=== PATIENT | female | born 1985 | race Caucasian/White ===

== ENCOUNTER 2016-10-10 03:35 | Emergency (ER) | payer SELFPAY ==
[2016-10-10 04:00] VITALS: BP 142/97
[2016-10-10] MEDS ORDERED: TYLENOL PO ONE (04:50)
[2016-10-10] MEDS ORDERED: TYLENOL ONE (04:51)
--- NOTE | 2016-10-10 05:46 | Emergency Department Report ---
HPI - General Chief Complaint: Dental/Oral Time Seen by Provider: 10/10/16 05:29 - HPI HPI: The patient is [id number] female at 39.3 weeks gestation followed by OPERATIONS PLANNER who presents to ED complaining of 10/10 pain in the right side of her mouth x 7 days . Patient states that the pain started 7 days ago and has increased in severity over the last 2-3 days. Patient states that it radiates towards ear. Patient describes a as a throbbing, pressure-like sensation. Patient states otherwise well and has no other complaints. Patient has had no fevers and no chills. No chest pain, no shortness of breath. No abdominal pain. No shortness of breath or recent trauma to the face. She states she has not been to due to increased quality to . ED Past Medical Hx - Past Medical History Previous Medical History?: No - Surgical History Past Surgical History?: Yes Additional Surgical History: 4 c-sections - Social History Smoking Status: Unknown if ever smoked - Medications Home Medications: Home Medications Medication Instructions Recorded Confirmed Last Taken Type Acetaminophen/Codeine [Tylenol 1 tab PO Q6H PRN #10 tab 10/10/16 Unknown Rx /Codeine # 3 tab] Amoxicillin [Amoxicillin TAB] 875 mg PO BID #20 tablet 10/10/16 Unknown Rx ED Review of Systems ROS: Stated complaint: TOOTHACHE, ABSCESS,RT FACE PAIN Other details as noted in HPI Constitutional: denies: chills, fever Eyes: denies: eye pain, eye discharge, vision change ENT: dental pain. denies: ear pain, throat pain, hearing loss, congestion Respiratory: denies: cough, shortness of breath, wheezing Cardiovascular: denies: chest pain, palpitations Endocrine: no symptoms reported Gastrointestinal: denies: abdominal pain, nausea, diarrhea Genitourinary: denies: urgency, dysuria, discharge Musculoskeletal: denies: back pain, joint swelling, arthralgia Skin: denies: rash, lesions Neurological: denies: headache, weakness, paresthesias Psychiatric: denies: anxiety, depression Hematological/Lymphatic: denies: easy bleeding, easy bruising Physical Exam - Physical Exam Vital Signs: Vital Signs 10/10/16 03:57 Temperature 97.7 F Pulse Rate 94 H Respiratory 20 Rate Blood Pressure 142/97 O2 Sat by Pulse 99 Oximetry Physical Exam: GENERAL: Alert and oriented x3, no apparent distress, Normal Gait, atraumatic. HEAD: Head is normocephalic and a-traumatic. EYES: Extra ocular muscles are intact. Pupils are equal, round, and reactive to light and accommodation. EARS: symetrical, atraumatic, non tender, ear canal clear and moderate cerumen, tympanic membrance non inflamed. gross auditory nml bilaterally. NOSE: Nose symetrical, Nontender,Nares appeared normal. MOUTH:Mouth is well hydrated and without lesions. Tonsils nonerythematous or swollen, Uvula midline, Tongue not elevated. Mucous membranes are moist. Posterior pharynx clear, no exudate or lesions. Patent airways. Tooth #1719 and 19 partially missing, decayed, not to bleeding, no change of the enlargement , dental caries visualize NECK: Supple. Non edematous, No carotid bruits. No lymphadenopathy or thyromegaly. No C-spine tenderness LUNGS: Symetrical with respiration, No wheezing, no rales or crackles, CTAB. HEART: S1, S2 present, regular rate and rhythm without murmur, no rubs, no gallops. Non tender to palpation ABDOMEN: No organomegaly was noted,Positive bowel sounds, soft, and non- distended. . Nontender to palpation on all Quadrants, NO CVA tenderness. SKIN: Warm and dry, No lesions, No ulceration or induration present. ED Course Vital Signs 10/10/16 03:57 Temperature 97.7 F Pulse Rate 94 H Respiratory 20 Rate Blood Pressure 142/97 O2 Sat by Pulse 99 Oximetry ED Medical Decision Making - Medical Decision Making 31-year-old female who presents with left-sided Facial pain secondary to odontogenic caries ED course: Patient received 1000 mg of amoxicillin, 1 tablets of Tylenol No. 3. Odontogenic infection versus ear infection. Based upon history and physical examination, pain is a result of an infection of tooth number 16,17,18 and that the pain Pt feels on the right side of her face and towards the ear is referred pain from this infectious process. Pt has no evidence of acute impending airway compromise. At this point, patient will be discharged home on some antibiotics and pain trial, she will do well with an outpatient course of antibiotics. Follow up with the Dental Clinic as referred. Vital signs are normal patient is in no acute distress. Pt had an effect uneventful ED stay Critical care attestation.: If time is entered above; I have spent that time in minutes in the direct care of this critically ill patient, excluding procedure time. ED Disposition Clinical Impression: Dental caries Disposition: TO HOME OR SELFCARE Is pt being admited?: No Does the pt Need Aspirin: No Condition: Stable Instructions: Toothache (ED), Dental Caries (ED) Prescriptions: Acetaminophen/Codeine [Tylenol /Codeine # 3 tab] 1 tab PO Q6H PRN #10 tab PRN Reason: Pain Amoxicillin [Amoxicillin TAB] 875 mg PO BID #20 tablet Referrals: PRIMARY CARE, [Primary Care Provider] - 3-5 Days [facility] [Outside] - 3-5 Days [facility] [Outside] - 3-5 Days Forms: Accompanied Note, Work/School Release Form(ED) Time of Disposition: 05:54
[2016-10-10] MEDS ORDERED: TYLENOL #3 PO ONE (05:55)
[2016-10-10] MEDS ORDERED: TRIMOX PO ONE (05:55)
== END 2016-10-10 06:04 | disposition home or self-care (01) ==
LOC: ED 03:35
DX: O26.893 Other specified pregnancy related conditions, third trimester (principal); K02.9 Dental caries, unspecified; Z3A.39 39 weeks gestation of pregnancy
CPT/HCPCS: 99282

== ENCOUNTER 2016-10-13 15:35 | Inpatient (IN) | payer OTHER ==
--- NOTE | 2016-10-13 16:48 | History and Physical Report ---
<YULIANA SIMMONS - Last Filed: 10/13/16 17:39> History of Present Illness Date of examination: 10/13/16 (pt presents c/o pain; has just moved to area) Chief complaint: abdominal pain History of present illness: pt is a 5P4 all sections 1st c/s was for arrest of descent Records requested and received from [facility] EDC 10-15-16 Pt denies Drugs, ETOH, Smoking Negative medical hx surgical hx: c/s X 4 Labs from 09-22-16 AB+ Antibody screen negative Rubella IMMUNE HepB negative HIV negative GBS done but not yet resulted Pt aware will have a repeat section and voices desire for permanent sterilization. Past History - Obstetrical History Expected Date of Delivery: 10/15/16 Actual Gestation: 39 Week(s) 5 Day(s) : 5 Para: 4 (all c/s deliveries) Hx # Term Pregnancies: 4 Number of Living Children: 4 Medications and Allergies Allergies Allergy/AdvReac Type Severity Reaction Status Date / Time No Known Allergies Allergy Verified 10/10/16 04:52 - Physical Exam Breasts: Positive: deferred Cardiovascular: Regular rate, Normal S1, Normal S2 Lungs: Positive: Normal air movement Abdomen: Positive: normal appearance, soft, normal bowel sounds. Negative: distention, tenderness Genitourinary (Female): Positive: normal external genitalia Vulva: both: normal Vagina: Positive: normal moisture. Negative: discharge Cervix: Negative: lesion, discharge Uterus: Positive: normal size, normal contour Adnexa: both: normal Anus/Rectum: Positive: normal perianal skin, heme negative. Negative: rectal mass, hemorrhoids Extremities: Positive: edema Deep Tendon Reflex Grade: Normal +2 - Obstetrical FHR: category 1 Uterine Contraction Monitor Mode: External Cervical Dilatation: 0 Cervical Effacement Percentage: 50 station: -3 Uterine Contraction Pattern: Irregular Uterine Tone Measurement Phase: Resting Results All other labs normal. Assessment and Plan Nurse obtained all medical relevant questions through language line with FOB answering questions. Pt firm in her request to have permanent sterilization when c/s is done. Records received and information entered into EMR Pt did eat @ 1300 made aware of patient Will move forward with section Anesthesia aware <JEANNE GONZALEZ - Last Filed: 10/13/16 19:05> History of Present Illness Date of admission: 10/13/16 15:36 History of present illness: Patient only speaks Belarusian. History was obtained through the [facility] with Alisa as the geodesy teacher her number is [email or web address] This is a 31-year-old female 5 para 4 previous 4 who received her care at [facility] in [place]. She presents in prolonged latent phase labor at 39 weeks and 5 days. The records received reveals her only encounter with [facility] was on September. records are reviewed. Patient's verbally obtained history is consistent with records. Explained to the patient that with prolonged latent phase labor at 39 weeks and previous 4 delivery is indicated now. Patient states she desires sterilization. It was explained that sterilization is a permanent, irreversible procedure. She was informed she will not be able to have any more babies once sterilization is performed. She was informed of the recommendation to perform bilateral salpingectomy for sterilization. She was also informed of 1% failure rate that may culminate in a in her tube or a live viable intrauterine . At this point patient's presented and listen to the explanation interpretation. The consent for sterilization and delivery was then read to patient and her . Questions were encouraged and answered. Patient voiced understanding and desires to proceed with delivery with salpingectomy for sterilization. Medications and Allergies Active Meds: Active Medications Cefazolin Sodium (Ancef/Sterile Water 2 Gm/20 Ml) 2 gm in 20 mls @ 80 mls/hr IV PREOP NR PRN Reason: Protocol Stop: 10/13/16 23:59 Lactated Ringer's (Lactated Ringers) 1,000 mls @ 125 mls/hr IV DIRECT EDWIGE Lactated Ringer's (Lactated Ringers) 1,000 mls @ 2,250 mls/hr IV PREOP EDWIGE Stop: 10/14/16 18:27 Oxytocin/Sodium Chloride (Pitocin/Ns 20 Unit/1000ml Drip) 20 units in 1,000 mls @ 125 mls/hr IV DIRECT EDWIGE Oxytocin/Sodium Chloride (Pitocin/Ns 20 Unit/1000ml Drip) 20 units in 1,000 mls @ 0 mls/hr IV TITR EDWIGE PRN Reason: As Directed Mineral Oil (Mineral Oil) 30 ml PO QHS PRN PRN Reason: Constipation Results Result Diagrams: 10/13/16 18:00 Abnormal lab results 10/13/16 Range/Units 18:00 MCH 27 L (28-32) pg Seg Neutrophils % 72.5 H (40.0-70.0) % All other labs normal.
[2016-10-13] MEDS ORDERED: REGLAN IV ONE (17:40)
[2016-10-13] MEDS ORDERED: XYLOCAINE 2% INFILTRATI ONE (17:40)
[2016-10-13] MEDS ORDERED: BICITRA PO ONE (17:40)
[2016-10-13] MEDS ORDERED: PEPCID IV ONE (17:40)
[2016-10-13] MEDS ORDERED: ePHEDrine SULFATE IV PRN (17:40)
[2016-10-13] MEDS ORDERED: MINERAL OIL PO PRN (17:40)
[2016-10-13] MEDS ORDERED: BRETHINE SUB-Q PRN (17:40)
[2016-10-13] MEDS ORDERED: LACTATED RINGERS 2,000 ML ONE (17:45)
[2016-10-13] MEDS ORDERED: LACTATED RINGERS 1,000 ML IV SCH ×2 (18:00)
[2016-10-13] MEDS ORDERED: PITOCin/NS 20 UNIT/1000ML DRIP 20 UNITS/1,000 ML BAG IV SCH ×3 (18:00→22:50)
[2016-10-13] MEDS ORDERED: ANCEF/STERILE WATER 2 GM/20 ML 2 GM/20 ML SYRINGE IV NR (18:00)
--- NOTE | 2016-10-13 18:08 | Anesthesia Day of Surgery ---
Anesthesia Day of Surgery - Day of Surgery Patient Examined: Yes Patient H&P Reviewed: Yes Patient is NPO: Yes
--- NOTE | 2016-10-13 18:08 | Anesthesia Consultation ---
Anesthesia Consult and Med Hx Date of service: 10/13/16 - Airway Anesthetic Teeth Evaluation: Poor ROM Head & Neck: Adequate Mental/Hyoid Distance: Adequate Mallampati Class: Class II Intubation Access Assessment: Probably Good - Pulmonary Exam CTA: Yes - Cardiac Exam Cardiac Exam: RRR - Pre-Operative Health Status ASA Pre-Surgery Classification: ASA2 Proposed Anesthetic Plan: Spinal - Pulmonary Hx Asthma: No - Cardiovascular System Hx Hypertension: No - Central Nervous System Hx Seizures: No Hx Psychiatric Problems: No - Endocrine Hx Renal Disease: No Hx Hypothyroidism: No Hx Hyperthyroidism: No - Hematic Hx Anemia: No Hx Sickle Cell Disease: No - Other Systems Hx Alcohol Use: No
[2016-10-13 18:22] LABS: Basophils % (Auto) 0.4 % (0.0-1.8); Eosinophils % (Auto) 1.4 % (0.0-4.3); Hematocrit 36.5 % (30.3-42.9); Hemoglobin 11.9 gm/dl (10.1-14.3); Mean Corpuscular HGB Conc 33 % (30-34); Mean Corpuscular Hemoglobin 27 pg (28-32); Mean Corpuscular Volume 84 fl (79-97); Red Blood Count 4.36 M/mm3 (3.65-5.03); Red Cell Distribution Width 13.7 % (13.2-15.2); White Blood Count 8.9 K/mm3 (4.5-11.0)
[2016-10-13] MEDS ORDERED: MORPHINE ONE (18:25)
[2016-10-13] MEDS ORDERED: ePHEDrine SULFATE ONE (18:28)
[2016-10-13 19:22] LABS: Platelet Count 177 K/mm3 (140-440)
[2016-10-13] MEDS ORDERED: NACL 0.9% IR ONE (19:53)
[2016-10-13] MEDS ORDERED: WATER FOR IRRIG STERILE IR ONE (19:53)
[2016-10-13] MEDS ORDERED: VERSED ONE (20:24)
[2016-10-13] MEDS ORDERED: TORADOL ONE (20:37)
[2016-10-13] MEDS ORDERED: DEMEROL ONE (21:02)
--- NOTE | 2016-10-13 21:14 | Operative Report ---
Operative Report Operative Report: Date of procedure: 10/13/2016 Pre-operative diagnosis: 1. Intrauterine at 39 weeks 2. Previous 4 3. Desires sterilization 4. Prolonged latent phase labor 5. Insufficient care Post-operative diagnosis: 1. Intrauterine at 39 weeks 2. Previous 4 3. Desires sterilization 4. Prolonged latent phase labor 5. Insufficient care 6. Pelvic adhesions Procedure name(s): Low transverse section with bilateral salpingectomy Surgeon: Myrtle Jurado MD Curb Supervisor: Maria Eugenia St CNM Anesthesia: Spinal Findings: Liveborn female infant. Weight 7 lbs. 14 oz. Apgars 8 at 1 minute 9 at 5 minutes. Dense adhesions of the uterus to the anterior abdominal wall. Grossly normal tubes and ovaries. Anesthesiologist: Patrick Mack M.D. Complications: None EBL: 600 mL Procedure: After risks, benefits, and complications and alternatives and consequences, were discussed with patient, and she voiced her understanding and desired to proceed. Patient was taken to the OR, where spinal anesthesia was placed. She was then placed in the left lateral tilt position, and prepped and draped in the usual sterile fashion. After timeout was performed, and an appropriate level of anesthesia was noted, a Pfannenstiel incision was made and extended to the fascia. The fascia was incised and extended in a lateral direction. The overlying fascia was sharply dissected away from the underlying rectus muscles in the superior-inferior direction. The midline was entered with both blunt and sharp dissection. The adhesion of the anterior uterus to anterior abdominal wall was released. And with careful dissection the bladder flap was created. A transverse incision was made in the lower uterine segment and extended in the superior lateral direction with finger fractionation. Clear fluid was noted. The was delivered from the cephalic position with spontaneous cry and excellent tone. The cord was doubly clamped and cut. The 's mouth and nose were bulb suctioned. And the was given to the resuscitation team present. [Cord blood was obtained.] The placenta was manually extracted. The uterus was exteriorized and cleaned any products of conception and placental tissue. The incision was reapproximated using 0 Vicryl in a running interlocking stitch. Hemostasis was obtained and the incision with 0 Vicryl with an interrupted [id number]. Grossly normal tubes and ovaries were noted. Bilateral salpingectomy was performed with the 5 mm [place] LigaSure bilaterally. Both tubes were sent to pathology. Once hemostasis was noted, the uterus was allowed back into the pelvic cavity. The pelvis was irrigated with warm normal saline. Attention was again turned to the areas of tubes where procedure was performed. Hemostasis was noted on both areas. Once hemostasis was noted, Tisseel was applied to the anterior surface of the incision and tubal segments. Once hemostasis was noted, attention was turned to the rectus muscles. Once hemostasis was noted, the fascia was reapproximated using 0 Vicryl in a simple running stitch. Once hemostasis was noted, the incision was irrigated with normal saline. The incision was reapproximated using 4-0 Vicryl on a Royal needle. Patient tolerated the procedure well she was taken to recovery room in stable condition. Counts were correct 3
[2016-10-13] MEDS ORDERED: LANSINOH TP PRN (22:50)
[2016-10-13] MEDS ORDERED: PHENERGAN PR PRN (22:50)
[2016-10-13] MEDS ORDERED: MYLICON PO PRN (22:50)
[2016-10-13] MEDS ORDERED: MORPHINE IV PRN ×2 (22:50)
[2016-10-13] MEDS ORDERED: ZOFRAN IV PRN (22:50)
[2016-10-13] MEDS ORDERED: TUCKS PAD TP PRN (22:50)
[2016-10-13] MEDS ORDERED: SODIUM CHLORIDE FLUSH SYRINGE 10 ML IV PRN (22:50)
[2016-10-13] MEDS ORDERED: NARCAN 0.4 MG/1 ML IV PRN (22:50)
[2016-10-13] MEDS ORDERED: TYLENOL PR PRN (22:50)
[2016-10-13] MEDS ORDERED: TYLENOL PO PRN (22:50)
[2016-10-14] MEDS: D5LR 1,000 ML IV SCH ×3 (02:25→22:52)
[2016-10-14] MEDS: ANCEF/NS 1 GM/50 ML 1 GM/50 ML BAG IV SCH ×2 (02:26→09:57)
[2016-10-14] MEDS ORDERED: BENADRYL PO PRN (02:27)
[2016-10-14] MEDS: TORADOL IV PRN ×2 (07:34→22:54)
--- NOTE | 2016-10-14 08:41 | Progress Note ---
Assessment and Plan patient doing well <12h post c/s, H&H to be drawn @ 0900, VSSAF, dressing D&I, RN to remove later today. Cheng draining clear yellow urine, output adequate. Continue current postop pathway. - Patient Problems (1) delivery delivered Current Visit: Yes Status: Acute Subjective - Subjective Date of service: 10/14/16 Principal diagnosis: Postop day #1 s/p repeat c/s w/ BTL Patient reports: pain well controlled, no flatus, no nauseated [place]: doing well, bottle feeding Objective - Vital Signs Latest vital signs: Vital Signs Temp Pulse Resp BP BP Pulse Ox 10/14/16 05:00 98.4 F 111 H 20 115/61 10/13/16 22:39 99 F 77 129/77 10/13/16 22:00 79 17 122/79 99 10/13/16 21:50 77 16 120/78 100 10/13/16 21:40 70 40 H 120/73 99 10/13/16 21:30 74 11 L 123/74 100 10/13/16 21:20 72 16 117/70 99 10/13/16 21:10 73 14 115/61 99 10/13/16 21:01 85 11 L 104/67 99 10/13/16 20:57 100 10/13/16 20:55 98.0 F 10/13/16 16:00 98.2 F 18 Intake and Output 10/13/16 10/14/16 10/14/16 22:59 06:59 14:59 Intake Total 2925 1120 Output Total 520 500 Balance 2405 620 Intake: IV 2925 1000 ANCEF/NS 1 GM/50 ML 1 gm 50 In 50 ml @ 100 mls/hr IV Q8H EDWIGE Rx#:[id number] Lactated Ringers 1,000 ml 125 950 @ 125 mls/hr IV DIRECT EDWIGE Rx#:[id number] Intake, Free Water 120 Output: Urine 520 500 Indwelling Catheter 500 Other: Total, Output Amount 500 Weight 97.522 kg Estimated Blood Loss 700 - Exam Breasts: Present: normal Cardiovascular: Present: Regular rate Lungs: Present: Clear to auscultation, Normal air movement Abdomen: Present: normal appearance, soft Uterus: Present: normal, firm, fundal height at umbilicus Extremities: Present: normal Deep Tendon Reflex Grade: Normal +2 Incision: Present: normal, dry, dressed - Labs Labs: Abnormal lab results 10/13/16 Range/Units 18:00 MCH 27 L (28-32) pg Seg Neutrophils % 72.5 H (40.0-70.0) %
[2016-10-14 08:54] LABS: Hematocrit 27.2 % (30.3-42.9); Hemoglobin 8.7 gm/dl (10.1-14.3)
[2016-10-14] MEDS: PERCOCET 5/325 PO PRN (11:57)
[2016-10-14] MEDS: MOTRIN PO PRN (12:00)
--- NOTE | 2016-10-14 13:25 | Progress Note ---
Subjective Date of service: 10/14/16 Principal diagnosis: Postop day #1 s/p repeat c/s w/ BTL Interval history: 1st POD after repeat with BTL Patient is in the bed, comfortable. Pain is well controlled with pain meds. Ambulated well. No residual neurological deficit. No pruritus. No anesthesia complications Objective - Constitutional Vitals: Vital Signs - 12hr 10/14/16 10/14/16 10/14/16 05:00 07:40 11:30 Temperature 98.4 F 99.2 F 98.3 F Pulse Rate 111 H 80 92 H Respiratory 20 20 24 Rate Blood Pressure 115/61 100/70 80/54 [Left] Blood Pressure 80/62 [Right] 10/14/16 10/14/16 11:57 12:00 Temperature Pulse Rate Respiratory 20 20 Rate Blood Pressure [Left] Blood Pressure [Right] - Labs CBC & Chem 7: 10/14/16 08:41 Labs: Abnormal lab results 10/13/16 10/14/16 Range/Units 18:00 08:41 Hgb 8.7 L D (10.1-14.3) gm/dl Hct 27.2 L D (30.3-42.9) % MCH 27 L (28-32) pg Seg Neutrophils % 72.5 H (40.0-70.0) %
[2016-10-14] MEDS ORDERED: AMMONIA INHALANT IH ONE ×2 (13:57→17:12)
[2016-10-14 14:02] LABS: Hemoglobin 7.6 gm/dl (10.1-14.3)
[2016-10-14] MEDS ORDERED: LACTATED RINGERS 1,000 ML ONE (15:23)
[2016-10-14] MEDS ORDERED: NACL 0.9% 500 ML 500 ML IV NR (15:27)
--- NOTE | 2016-10-14 17:24 | Event Note ---
Date: 10/14/16 Called about 1500 for second orthostatic episode on trying to get up. Now about 20 hours post 5th repeat c/s and bilateral salpingectomy Pulse about 100, BPs 80/50s Patient only speaks Lao and some Indonesian I believe. James is just now inserted and I confirmed placement since no urine was seen in tube. She has had only 100mL urine since james removed this am. IV of NS has just started to infuse and after about 15 min she has small amount of dark urine in james tube. Abdomen is somewhat soft distension with hypoactive BS in upper quadrants and mid umbilical. Patient is moderately tender with some guarding in upper quadrants Incision is bandaged and dry and there is no evidence of hematoma formation in the incisional area and no discoloration. Dr Jurado described moderate blood loss at c/s and salpingectomy of 600cc. H/H admit yesterday at 1800 = 11.9/36.5 H/H today 0800 = 8.7/27.2 H/H today 1400 = 7.6/23.0 Impression 1. post op c/s and salpingectomy 20 hours 2. ortho-static hypotension 3. blood loss anemia 2. possible intra-abdominal bleeding from unknown site Plan: 1. will transfuse 1 unit PRBC now and get CT scan to evaluate for hematoma or free blood in peritoneum 2. transfuse 2nd unit PRBC after CT and decide about the need to take for ex- lap tonight All this discussed with wood model builder line in Lao with the patient and her sister. Consents signed for blood transfusion, possible ex-lap and possible hysterectomy.
--- NOTE | 2016-10-14 19:29 | Cat Scan Report ---
FINAL REPORT EXAM: CT ABDOMEN PELVIS WO CON HISTORY: post c/s, possible intra-abdominal bleeding TECHNIQUE: CT abdomen and pelvis without contrast PRIORS: None. FINDINGS: Lack of intravenous contrast partially limits evaluation. There is some dependent atelectasis noted at the lung bases On nonenhanced images no focal abnormality identified within the liver. Spleen is within normal limits for size. There is dense focus layering within the gallbladder consistent with cholelithiasis Kidneys demonstrate no evidence for hydronephrosis there is moderate amount of ascites low-density fluid seen within the abdomen and pelvis large central pelvic structure seen consistent with uterus. There is history of recent . There is some air with surrounding fluid and increased density present within the uterus. There is a lower abdominal wall midline incision present. This tiny foci of free air are identified within the abdomen and pelvis likely postoperative in nature. At the lower abdominal wall there mottled air collections along with irregular hyperdense collections within the rectus sheath nodules are difficult to measure however prior presence of rectus sheath hematoma suspected. There is Cheng present within the urinary bladder which is nondistended. IMPRESSION: Moderate ascites. Small amount of free air identified likely postoperative in nature Suspect lower rectus sheath hematoma. Boundaries are not clearly defined. Markedly enlarged uterus. Air collections along with central hyperdense collections within the uterus consistent with history of recent . Presence of clot centrally within the uterus suspected Postoperative changes with lower pelvic wall incision Cholelithiasis noted
[2016-10-14] MEDS ORDERED: LACTATED RINGERS 1,000 ML IV ONE (19:30)
--- NOTE | 2016-10-14 21:13 | Event Note ---
Date: 10/14/16 Impression from last note about 6 hours ago 1. post op c/s and salpingectomy 20 hours 2. ortho-static hypotension 3. blood loss anemia 2. possible intra-abdominal bleeding from unknown site Since that evaluation she has received 1L NS and 1 PRBC with 2nd one infusing. I spoke to pt, , sister and cousin who could translate from Occitan. Patient only speaks Guatemalan and some Danish I believe. Patient indicates that she feels better after blood and fluid. Pulse has improved to about 80 (from 100), BPs improved to 110/80 (from80/50s) Cheng output has been about 100cc/hr so far Abdomen is somewhat increased with soft distension and hypoactive BS in upper quadrants and mid umbilical--this is relatively unchanged. Patient is moderately tender with some guarding in lower and mid quadrants Incision is bandaged and dry and there is no evidence of hematoma formation in the incisional area and no discoloration. CT was read as moderate ascites and possible rectus sheath hematoma. I looked at images myself and they are difficult to read but there is no fluid around liver or spleen. I am uncertain about the call of ascites v free blood and will attempt to call the radiology team who read the CT. Dr Jurado described moderate blood loss at c/s and salpingectomy of 600cc. H/H admit yesterday at 1800 = 11.9/36.5 H/H today 0800 = 8.7/27.2 H/H today 1400 = 7.6/23.0 Impression: 1. post op c/s and salpingectomy now 24-25 hours post-op 2. ortho-hypotension probably resolved at present but has not been up again 3. blood loss anemia 4. possible (but not confirmed) intra-abdominal bleeding from unknown site Plan: 1. will await post transfusion Hct and possibly transfuse 2 more units if any further drop. 2. watch closely, I will be here overnight. Consents signed and on the chart for blood transfusion, possible ex-lap and possible hysterectomy.
[2016-10-14] MEDS ORDERED: NACL 0.9% 500 ML 500 ML IV ONE (21:15)
[2016-10-15 02:03] LABS: Hematocrit 22.4 % (30.3-42.9); Hemoglobin 7.6 gm/dl (10.1-14.3)
[2016-10-15] MEDS ORDERED: NACL 0.9% 500 ML 500 ML IV SCH (04:00)
[2016-10-15] MEDS: TORADOL IV PRN (04:40)
[2016-10-15] MEDS ORDERED: NACL 0.9% 500 ML 500 ML IV ONE ×2 (05:40→05:57)
--- NOTE | 2016-10-15 05:55 | Event Note ---
Date: 10/15/16 5:50AM 3 hr Post transfusion of 2 u PRBC, hgb is unchanged at 7.6 Urine output has fallen off to 50mL per hour all night and still looks concentrated I was called by nurse and told that patient's abdomen was hard now, I came and examined her myself and her abdomen is only very firm in lower quadrants and still relatively soft in upper quadrants with some guarding in upper and moderate to severe guarding in lower quadrants. So, no improvement and some worsening of clinical status after 2 u transfusion and am continuing to transfuse the patient another 2 u and 6 more are ordered. Pulse is now back in the 90 to 100. Will discuss with oncoming team but I believe this patient needs to go back to OR for ex lap to identify bleeding source. Will likely need FFP too and I will order that.
[2016-10-15] MEDS ORDERED: BOOSTRIX IM ONE (06:00)
--- NOTE | 2016-10-15 06:27 | Progress Note ---
Assessment and Plan - Patient Problems (1) delivery delivered Onset Date: ~10/13/16 Current Visit: Yes Status: Acute Plan to address problem: In room with to assess pt. Abdomen per has not chged Hard below umbilicus, uterus palpated to the right lower quadrant, soft but with guarding above umbilicus, and distended. Baby is in holding nursery. asleep in room with pt. will speak with on coming MD for plan of care. Will continue transfusion. Subjective - Subjective Date of service: 10/15/16 (3rd unit RBC transfusing) Principal diagnosis: Postop day #2 s/p repeat c/s w/ BTL Interval history: pt is a 5P4 all sections 1st c/s was for arrest of descent Records requested and received from [facility] 10-15-16 Pt denies Drugs, ETOH, Smoking Negative medical hx surgical hx: c/s X 4 Labs from 09-22-16 AB+ Antibody screen negative Rubella IMMUNE HepB negative HIV negative GBS done but not yet resulted Pt aware will have a repeat section and voices desire for permanent sterilization. Patient reports: other (pt does have pain with palapation of abdomen) Gilberts: doing well Objective - Vital Signs Latest vital signs: Vital Signs Temp Pulse Resp BP BP BP Pulse Ox 10/15/16 06:12 98.7 F 99 H 20 125/90 10/15/16 05:12 98.4 F 92 H 22 123/77 10/15/16 04:42 98.8 F 99 H 24 128/84 10/15/16 04:30 99.1 F 90 22 138/89 10/15/16 04:12 99.1 F 109 H 22 138/89 10/15/16 03:57 99.0 F 88 20 118/78 10/15/16 03:50 98.9 F 102 H 22 134/89 10/15/16 00:00 98.6 F 69 16 121/71 10/14/16 22:20 98.8 F 85 20 112/72 10/14/16 21:50 98.7 F 82 22 118/70 10/14/16 21:20 99.0 F 82 20 118/71 10/14/16 20:50 98.8 F 83 22 111/74 10/14/16 20:20 98.5 F 78 22 109/68 10/14/16 20:05 98.4 F 69 22 110/64 10/14/16 20:00 98.4 F 69 16 110/64 10/14/16 18:00 98.5 F 101 H 20 107/68 10/14/16 17:30 98.6 F 100 H 20 100/65 10/14/16 17:00 98.4 F 99 H 20 106/61 10/14/16 16:45 98.7 F 102 H 18 98/67 10/14/16 16:30 98.7 F 101 H 18 94/58 10/14/16 16:16 98.4 F 105 H 17 89/49 98 10/14/16 15:45 84/44 10/14/16 13:45 60/44 10/14/16 13:40 92 H 86/40 10/14/16 12:00 20 10/14/16 11:57 20 10/14/16 11:30 98.3 F 92 H 24 80/54 80/62 10/14/16 07:40 99.2 F 80 20 100/70 Intake and Output 10/14/16 10/14/16 10/15/16 14:59 22:59 06:59 Intake Total 1870 250 750 Output Total 200 350 550 Balance 1670 -100 200 Intake: IV 1750 750 D5lr 1,000 ml @ 125 mls/ 1000 hr IV DIRECT EDWIGE Rx#: [id number] D5lr 1,000 ml @ 150 mls/ 750 hr IV DIRECT EDWIGE Rx#: [id number] Lactated Ringers 1,000 ml 750 @ 125 mls/hr IV DIRECT EDWIGE Rx#:[id number] Oral 120 Blood Product 250 0 Leukoreduced Red Blood 250 Cells Unit [id number] Leukoreduced Red Blood 0 Cells Unit [id number] Output: Urine 200 350 550 Indwelling Catheter 150 350 550 Void 50 Other: Total, Intake Amount 120 Total, Output Amount 50 250 300 - Exam Breasts: Present: normal Cardiovascular: Present: Regular rate Lungs: Present: Clear to auscultation, Normal air movement Abdomen: Present: distention, tenderness, guarding Uterus: Present: normal (deviated to the right) Extremities: Present: edema Deep Tendon Reflex Grade: Normal +2 Incision: Present: dry, intact - Labs Labs: Abnormal lab results 10/13/16 10/14/16 10/14/16 Range/Units 18:00 08:41 13:45 Hgb 8.7 L D 7.6 L (10.1-14.3) gm/dl Hct 27.2 L D 23.0 L (30.3-42.9) % Crossmatch See Detail 10/15/16 Range/Units 01:53 Hgb 7.6 L (10.1-14.3) gm/dl Hct 22.4 L (30.3-42.9) % Crossmatch
[2016-10-15 06:46] LABS: INR 0.83 (0.87-1.13)
[2016-10-15 06:48] LABS: Anion Gap 17 mmol/L; Blood Urea Nitrogen 12 mg/dL (7-17); Calcium 7.9 mg/dL (8.4-10.2); Carbon Dioxide 20 mmol/L (22-30); Chloride 104.1 mmol/L (98-107); Glucose 85 mg/dL (65-100); Sodium 137 mmol/L (137-145)
--- NOTE | 2016-10-15 08:34 | Event Note ---
Date: 10/15/16 Patient just finished her third unit of packed red blood cells. Through the translator/interpreter line patient reports that she feels better than yesterday she denies any nausea vomiting. She states she does not feel as dizziness she felt yesterday. Patient without shortness of breath. Abdomen is distended and appropriately tender no rebound noted. Incision intact No vaginal bleeding at this time Extremities without cyanosis 1-2+ edema pedal pulses palpated bilaterally A/patient of with the anemia secondary to acute blood loss. Patient with stable vital signs in appearance of 550 mL urine output over 7 hours. Patient has been concerned about possibility of further surgery. At the moment patient appears to be improving without acute abdomen. P/will obtain CBC now to assess were reviewed and will continue blood transfusion and possible for frozen plasma. We'll continue serial exams if patient appears to be worsening will probably be indication for repeat surgery.
[2016-10-15 08:44] LABS: Basophils % (Auto) 0.2 % (0.0-1.8); Eosinophils % (Auto) 1.5 % (0.0-4.3); Hematocrit 23.9 % (30.3-42.9); Hemoglobin 8.2 gm/dl (10.1-14.3); Mean Corpuscular HGB Conc 34 % (30-34); Mean Corpuscular Hemoglobin 29 pg (28-32); Mean Corpuscular Volume 85 fl (79-97); Platelet Count 160 K/mm3 (140-440); Red Blood Count 2.83 M/mm3 (3.65-5.03); Red Cell Distribution Width 14.4 % (13.2-15.2); White Blood Count 7.1 K/mm3 (4.5-11.0)
--- NOTE | 2016-10-15 09:07 | Event Note ---
Date: 10/15/16 I received a call from Dr. Tejeda in radiology states on review of previous CT scan he feels that patient was having bleeding from the rectus muscles and not ascites as previously reported. This CT scan was done approximately 14 hours ago. It is possible patient's bladder had active bleeding at that time but due to her clinical presentation now and increase in her hemoglobin and hematocrit with the last unit given still believes does not have active bleeding. This report does lower my threshold for reoperating the patient clinical picture does not continue to improve as it is doing now. We'll continue with him at least 2 more units of packed red blood cells and reassess.
[2016-10-15] MEDS ORDERED: LASIX IV ONE ×2 (09:17→10:00)
--- NOTE | 2016-10-15 13:42 | Event Note ---
Date: 10/15/16 Patient states she is feeling better and desired . She is finishing up her fifth unit of blood transfusion with excellent urine output. Abdomen is less distended and soft with less tenderness incision intact. Patient is feeling better we'll continue observation will check post transfusion hematocrit and hemoglobin.
[2016-10-15] MEDS: D5LR 1,000 ML IV SCH (14:35)
[2016-10-15 16:49] LABS: Basophils % (Auto) 0.1 % (0.0-1.8); Eosinophils % (Auto) 1.4 % (0.0-4.3); Hematocrit 29.8 % (30.3-42.9); Hemoglobin 10.3 gm/dl (10.1-14.3); Mean Corpuscular HGB Conc 34 % (30-34); Mean Corpuscular Hemoglobin 30 pg (28-32); Mean Corpuscular Volume 86 fl (79-97); Platelet Count 178 K/mm3 (140-440); Red Blood Count 3.46 M/mm3 (3.65-5.03); Red Cell Distribution Width 15.2 % (13.2-15.2); White Blood Count 8.3 K/mm3 (4.5-11.0)
--- NOTE | 2016-10-15 17:40 | Event Note ---
Date: 10/15/16 Communication with the patient through battery charger conveyor line service. Patient consented up in the chair without complication denies any orthostatic cyst symptoms patient states the pain is much less and desires removal of her Cheng. Patient exam her abdomen is soft and appropriately tender patient does admit flatus. Incision intact. No vaginal bleeding seen Patient posttransfusion hematocrit 29% A/P patient with mom drop in hematocrit to be referred transfusion no evidence of active bleeding at this time. Urine output has been excellent Will of discontinuing Chegn per patient desire. We will repeat H&H morning continue to monitor vital signs.
[2016-10-15] MEDS: PERCOCET 5/325 PO PRN (20:57)
[2016-10-15] MEDS: MOTRIN PO PRN (20:57)
[2016-10-15] MEDS: COLACE PO SCH (21:02)
[2016-10-15] MEDS: FEOSOL PO SCH (21:02)
[2016-10-16] MEDS: MOTRIN PO PRN (04:04)
[2016-10-16] MEDS: PERCOCET 5/325 PO PRN ×2 (04:04→10:38)
--- NOTE | 2016-10-16 04:25 | Event Note ---
Date: 10/16/16 (elevated BP 130/90) PreE labs ordered Will draw eleanor H&H @ same time
[2016-10-16 05:42] LABS: Hematocrit 25.6 % (30.3-42.9); Hemoglobin 8.6 gm/dl (10.1-14.3)
[2016-10-16 06:08] LABS: Alanine Aminotransferase 19 units/L (7-56)
[2016-10-16 06:10] LABS: Lactate Dehydrogenase 176 units/L (91-180)
--- NOTE | 2016-10-16 08:44 | Progress Note ---
Assessment and Plan patient resting, no complaints this morning. Abd soft and nontender, incision D&I. b/p mostly 120-130's/80-90's. pre-e labs NL Afebrile, HR 80's. Most recent H&H 8.6/.6. Dr. Best to see patient. Continue current management. - Patient Problems (1) delivery delivered Onset Date: ~10/13/16 Current Visit: Yes Status: Acute Subjective - Subjective Date of service: 10/16/16 Principal diagnosis: Postop day #3 s/p repeat c/s w/ BTL Patient reports: appetite normal, voiding normally, pain well controlled, flatus , ambulating normally, no dizzy ambulation, no nauseated Dawson: doing well, bottle feeding Objective - Vital Signs Latest vital signs: Vital Signs Temp Pulse Resp BP BP BP Pulse Ox 10/16/16 00:40 97.7 F 89 20 136/84 10/15/16 16:12 98.8 F 80 20 120/82 10/15/16 13:52 131/90 10/15/16 13:45 134/90 10/15/16 13:31 136/90 10/15/16 13:00 128/83 10/15/16 12:30 134/91 10/15/16 12:00 116 H 140/92 95 10/15/16 11:34 111 H 129/88 95 10/15/16 11:00 135/93 10/15/16 10:30 109 H 134/90 93 10/15/16 10:00 134/91 10/15/16 09:45 128/89 10/15/16 09:40 133/91 10/15/16 09:37 126/88 10/15/16 09:32 134/90 Intake and Output 10/15/16 10/16/16 10/16/16 22:59 06:59 14:59 Intake Total 200 120 Output Total 1050 Balance -850 120 Intake: Oral 200 Intake, Free Water 120 Output: Urine 1050 Indwelling Catheter 300 Void 750 Other: Total, Intake Amount 200 Total, Output Amount 550 - Exam Breasts: Present: normal Cardiovascular: Present: Regular rate Lungs: Present: Clear to auscultation, Normal air movement Abdomen: Present: normal appearance, soft Vulva: both: normal Uterus: Present: normal, firm, fundal height at umbilicus Extremities: Present: normal Deep Tendon Reflex Grade: Normal +2 Incision: Present: normal, dry, intact - Labs Labs: Abnormal lab results 10/13/16 10/15/16 10/15/16 Range/Units 18:00 08:35 15:57 RBC 2.83 L 3.46 L (3.65-5.03) M/mm3 Hgb 8.2 L (10.1-14.3) gm/dl Hct 23.9 L 29.8 L (30.3-42.9) % Lymph % (Auto) 11.8 L (13.4-35.0) % Lymph # 1.0 L (1.2-5.4) K/mm3 Seg Neutrophils % 75.2 H 81.6 H (40.0-70.0) % Creatinine (0.7-1.2) mg/dL Crossmatch See Detail 10/16/16 10/16/16 Range/Units 05:00 05:00 RBC (3.65-5.03) M/mm3 Hgb 8.6 L (10.1-14.3) gm/dl Hct 25.6 L (30.3-42.9) % Lymph % (Auto) (13.4-35.0) % Lymph # (1.2-5.4) K/mm3 Seg Neutrophils % (40.0-70.0) % Creatinine 0.4 L (0.7-1.2) mg/dL Crossmatch
--- NOTE | 2016-10-16 10:10 | Event Note ---
Date: 10/16/16 Pt is stable this am. Abdomen is soft, not distended with good bowel sounds. Incision is c/d/i. No s/sx of internal bleeding. Pt advised via language line agent #[id number] (Mr. Ricardo) the findings on CT scan and h/h this am. I will repeat h/h and if stable will d/c pt home this pm. Pt agrees with plan of care and wants plan of care d/w upon his arrival. I advised that this will be arranged. Pt has repeat h/h 4hrs from one drawn earlier that is just being drawn. If stable will d/c home.
[2016-10-16 10:24] LABS: Hematocrit 25.1 % (30.3-42.9); Hemoglobin 8.6 gm/dl (10.1-14.3)
[2016-10-16] MEDS: COLACE PO SCH ×3 (10:30→19:27)
[2016-10-16] MEDS: FEOSOL PO SCH (10:38)
--- NOTE | 2016-10-16 13:46 | Discharge Summary ---
Providers - Providers Date of Admission: 10/13/16 15:36 Date of discharge: 10/16/16 Attending physician: JEANNE GONZALEZ 10/13/16 22:50 Consult to Quality Cloth Tester [CONS] Routine Reason For Exam: Primary care physician: JEANNE GONZALEZ Hospitalization Delivery: Procedure: bilateral tubal ligation, repeat low transverse Incision: normal, dry, intact Other procedures: none complications: other (postop bleeding, anemia, blood transfusion) Discharge diagnosis: IUP at term delivered baby: female Hospital course: uncomplicated c/s delivery, post op bleeding, anemia, blood transfusion Condition at discharge: Good Disposition: DC-01 TO HOME OR SELFCARE - Discharge Diagnoses (1) delivery delivered Status: Acute Plan - Discharge Medications Prescriptions: Ibuprofen [Motrin 800 MG tab] 800 mg PO TID PRN #30 tablet PRN Reason: Pain oxyCODONE /ACETAMINOPHEN [Percocet 5/325 mg] 1 - 2 tab PO Q4HR PRN #30 tablet PRN Reason: Pain - Provider Discharge Summary Activity: routine, no sex for 6 weeks, no heavy lifting 4 weeks, no strenuous exercise Diet: routine Instructions: routine Additional instructions: [] Smoking cessation referral if applicable(refer to patient education folder for contact #) [] Refer to [facility] Booklet Call your doctor immediately for: * Fever > 100.5 * Heavy vaginal bleeding ( >1 pad per hour) * Severe persistent headache * Shortness of breath * Reddened, hot, painful area to leg or breast * Drainage or odor from incision. * Keep incision clean and dry at all times and follow doctor's instructions regarding bathing/showering - Follow up plan Follow up: JEANNE GONZALEZ MD [Primary Care Provider] - 7 Days (Congratulations! Please call [phone] to schedule and appointment for 1 week in our office. Call for any questions or concerns. )
[2016-10-16 16:49] VITALS: BP 123/84
== END 2016-10-16 17:15 | disposition home or self-care (01) | DRG 766 ==
LOC: TRG 15:35 → APU 15:36 → TRG 15:37 → OB 22:20
PROVIDERS: ADMIT Obstetrics & Gynecology; ATTEND Obstetrics & Gynecology
PROC: 10D00Z1 Extraction of Products of Conception, Low, Open Approach (ICD-10-PCS; principal; 2016-10-13)
PROC: 0UT70ZZ Resection of Bilateral Fallopian Tubes, Open Approach (ICD-10-PCS; 2016-10-13)
PROC: 30233N1 Transfusion of Nonautologous Red Blood Cells into Peripheral Vein, Percutaneous Approach (ICD-10-PCS; 2016-10-14)
DX: O62.1 Secondary uterine inertia (principal); Z37.0 Single live birth; Z3A.39 39 weeks gestation of pregnancy; O99.03 Anemia complicating the puerperium; D64.9 Anemia, unspecified; O34.211 Maternal care for low transverse scar from previous cesarean delivery; Z30.2 Encounter for sterilization; I95.1 Orthostatic hypotension; O90.89 Other complications of the puerperium, not elsewhere classified
CPT/HCPCS: 36415; 74176; 80048; 82565; 83615; 84450; 84460; 84550; 85014; 85018; 85025; 85610; 86592; 86803; 86850; 86900; 86901; 86920; 88302; 88307; C9250; J0690; J1885; J1940; J2175; J2250; J2270; J2405; J2590; J2765; J7040; J7120; J7121; P9016

== ENCOUNTER 2016-10-17 21:27 | Emergency (ER) | payer SELFPAY ==
[2016-10-17 21:44] VITALS: BP 151/108
[2016-10-17 22:07] LABS: Hematocrit 25.6 % (30.3-42.9); Hemoglobin 8.3 gm/dl (10.1-14.3); Mean Corpuscular HGB Conc 33 % (30-34); Mean Corpuscular Hemoglobin 29 pg (28-32); Mean Corpuscular Volume 89 fl (79-97); Platelet Count 188 K/mm3 (140-440); Red Blood Count 2.89 M/mm3 (3.65-5.03); White Blood Count 5.4 K/mm3 (4.5-11.0)
[2016-10-17 22:15] LABS: INR 0.85 (0.87-1.13)
[2016-10-17 22:16] LABS: Partial Thromboplastin Time 26.8 Sec. (24.2-36.6)
[2016-10-17 22:24] LABS: Anion Gap 20 mmol/L; Blood Urea Nitrogen 16 mg/dL (7-17); Calcium 8.7 mg/dL (8.4-10.2); Carbon Dioxide 21 mmol/L (22-30); Chloride 105.1 mmol/L (98-107); Glucose 92 mg/dL (65-100); Potassium 4.1 mmol/L (3.6-5.0); Sodium 142 mmol/L (137-145)
[2016-10-17 22:32] LABS: Bacteria,Urine 1+ /HPF (Negative); Bilirubin,Urine NEG (Negative); Blood,Urine NEG (Negative); Ketones,Urine NEG (Negative); Leukocyte Esterase,Urine NEG (Negative); Mucus,Urine 1+ /HPF; Nitrite,Urine NEG (Negative); Protein,Urine <15 mg/dL mg/dL (Negative); WBC,Urine < 1.0 /HPF (0.0-6.0)
== END 2016-10-18 00:25 | disposition left against medical advice (07) ==
LOC: ED 21:27
DX: R04.0 Epistaxis (principal); Z53.21 Procedure and treatment not carried out due to patient leaving prior to being seen by health care provider
CPT/HCPCS: 36415; 80048; 81001; 85027; 85610; 85730

== ENCOUNTER 2016-10-18 17:57 | Emergency (ER) | payer SELFPAY ==
--- NOTE | 2016-10-18 19:01 | Emergency Department Report ---
ED General Adult HPI - General Chief complaint: Back Pain/Injury Stated complaint: PAIN BACK, HEAD, LEG, ABD SWELLING Source: patient Mode of arrival: Ambulatory Limitations: Language Barrier - History of Present Illness Initial comments: Patient is a 31-year-old female past medical history of section. Patient is Dominican speaking. Patient presents with back pain and shortness of breath it's been going on for the last couple days. Patient states the chest pains on the right side of her chest it is sharp breathing and makes it worse and nothing makes it better. It is a 5 out 10 it does not radiate. She also complains of some slight right ankle swelling that's been going on for the last month. Patient also complains of lower back pain. The lower back pain as a 5 out of 10. - Related Data Previous Rx's Medication Instructions Recorded Last Taken Type Ibuprofen [Motrin 800 MG tab] 800 mg PO TID PRN #30 tablet 10/13/16 Unknown Rx oxyCODONE /ACETAMINOPHEN [Percocet 1 - 2 tab PO Q4HR PRN #30 tablet 10/13/16 Unknown Rx 5/325 mg] Azithromycin [Zithromax Z-JAVED] 250 mg PO DAILY #5 tablet 10/18/16 Unknown Rx Allergies Allergy/AdvReac Type Severity Reaction Status Date / Time No Known Allergies Allergy Verified 10/18/16 18:03 ED Review of Systems ROS: Stated complaint: PAIN BACK, HEAD, LEG, ABD SWELLING Other details as noted in HPI Constitutional: denies: chills, fever Eyes: denies: eye pain, eye discharge, vision change ENT: denies: ear pain, throat pain Respiratory: cough, shortness of breath. denies: wheezing Cardiovascular: chest pain Endocrine: no symptoms reported Gastrointestinal: abdominal pain. denies: nausea, diarrhea Genitourinary: denies: urgency, dysuria, discharge Musculoskeletal: joint swelling (slight ankle swelling), other. denies: back pain, arthralgia Skin: denies: rash, lesions Neurological: denies: headache, weakness, paresthesias Psychiatric: denies: anxiety, depression Hematological/Lymphatic: denies: easy bleeding, easy bruising ED Past Medical Hx - Past Medical History Hx Hypertension: No Hx Congestive Heart Failure: No Hx Diabetes: No Hx Deep Vein Thrombosis: No Hx Renal Disease: No Hx Sickle Cell Disease: No Hx Seizures: No Hx Asthma: No Hx COPD: No Hx HIV: No - Surgical History Additional Surgical History: 4 c-sections - Social History Smoking Status: Never Smoker Substance Use Type: None - Medications Home Medications: Home Medications Medication Instructions Recorded Confirmed Last Taken Type Ibuprofen [Motrin 800 MG tab] 800 mg PO TID PRN #30 tablet 10/13/16 Unknown Rx oxyCODONE /ACETAMINOPHEN [Percocet 1 - 2 tab PO Q4HR PRN #30 tablet 10/13/16 Unknown Rx 5/325 mg] Azithromycin [Zithromax Z-JAVED] 250 mg PO DAILY #5 tablet 10/18/16 Unknown Rx ED Physical Exam - General Limitations: Language Barrier General appearance: alert, in no apparent distress - Head Head exam: Present: atraumatic, normocephalic - Eye Eye exam: Present: normal appearance - ENT ENT exam: Present: mucous membranes moist - Neck Neck exam: Present: normal inspection - Respiratory Respiratory exam: Present: normal lung sounds bilaterally. Absent: respiratory distress - Cardiovascular Cardiovascular Exam: Present: regular rate, normal rhythm. Absent: systolic murmur, diastolic murmur, rubs, gallop - GI/Abdominal GI/Abdominal exam: Present: soft, normal bowel sounds, other ( scar wound is clean dry and intact) - Extremities Exam Extremities exam: Present: normal inspection, other (slight right ankle swelling and tenderness or swelling). Absent: calf tenderness - Back Exam Back exam: Present: normal inspection - Neurological Exam Neurological exam: Present: alert, oriented X3 - Psychiatric Psychiatric exam: Present: normal affect, normal mood - Skin Skin exam: Present: warm, dry, intact, normal color. Absent: rash ED Course Vital Signs 10/18/16 10/18/16 10/18/16 18:04 18:55 19:00 Temperature 98.4 F Pulse Rate 83 84 Respiratory 18 34 H Rate Blood Pressure 143/95 165/97 143/96 Blood Pressure [Left] O2 Sat by Pulse 83 L 99 Oximetry 10/18/16 10/18/16 10/18/16 19:15 19:37 19:39 Temperature 98.1 F Pulse Rate 83 87 84 Respiratory 25 H 24 24 Rate Blood Pressure 143/96 165/97 Blood Pressure 143/96 [Left] O2 Sat by Pulse 99 99 99 Oximetry 10/18/16 10/18/16 10/18/16 19:45 20:00 20:15 Temperature Pulse Rate 79 78 86 Respiratory 36 H 40 H 20 Rate Blood Pressure 165/97 149/91 149/91 Blood Pressure [Left] O2 Sat by Pulse 98 97 99 Oximetry 10/18/16 10/18/16 10/18/16 20:47 21:00 21:15 Temperature Pulse Rate 77 76 78 Respiratory 17 39 H 20 Rate Blood Pressure 149/91 163/85 163/85 Blood Pressure [Left] O2 Sat by Pulse 99 96 Oximetry 10/18/16 21:31 Temperature Pulse Rate 81 Respiratory 14 Rate Blood Pressure 163/85 Blood Pressure [Left] O2 Sat by Pulse Oximetry - Reevaluation(s) Reevaluation #1: 10/18/16 21:30 Reevaluated patient says she is feeling better I will give patient antibiotics to go home with. ED Medical Decision Making - Lab Data Result diagrams: 10/18/16 19:37 10/18/16 19:37 Lab Results 10/18/16 10/18/16 10/18/16 Range/Units 18:18 19:37 19:37 WBC 6.1 (4.5-11.0) K/mm3 RBC 3.04 L (3.65-5.03) M/mm3 Hgb 9.1 L (10.1-14.3) gm/dl Hct 26.6 L (30.3-42.9) % MCV 88 (79-97) fl MCH 30 (28-32) pg MCHC 34 (30-34) % RDW 15.0 (13.2-15.2) % Plt Count 195 (140-440) K/mm3 Sodium (137-145) mmol/L Potassium (3.6-5.0) mmol/L Chloride (98-107) mmol/L Carbon Dioxide (22-30) mmol/L Anion Gap mmol/L BUN (7-17) mg/dL Creatinine (0.7-1.2) mg/dL Estimated GFR ml/min BUN/Creatinine Ratio % Glucose (65-100) mg/dL Calcium (8.4-10.2) mg/dL NT-Pro-B Natriuret Pep 474.2 H (0-450) pg/mL Urine Color Yellow (Yellow) Urine Turbidity Clear (Clear) Urine pH 6.0 (5.0-7.0) Ur Specific [place] 1.020 (1.003-1.030) Urine Protein <15 mg/dl (Negative) mg/dL Urine Glucose (UA) Neg (Negative) mg/dL Urine Ketones Neg (Negative) mg/dL Urine Blood Lg (Negative) Urine Nitrite Neg (Negative) Urine Bilirubin Neg (Negative) Urine Urobilinogen 4.0 (<2.0) mg/dL Ur Leukocyte Esterase Tr (Negative) Urine WBC (Auto) 4.0 (0.0-6.0) /HPF Urine RBC (Auto) 72.0 (0.0-6.0) /HPF U Epithel Cells (Auto) 2.0 (0-13.0) /HPF Urine Mucus Few /HPF 10/18/16 Range/Units 19:37 WBC (4.5-11.0) K/mm3 RBC (3.65-5.03) M/mm3 Hgb (10.1-14.3) gm/dl Hct (30.3-42.9) % MCV (79-97) fl MCH (28-32) pg MCHC (30-34) % RDW (13.2-15.2) % Plt Count (140-440) K/mm3 Sodium 140 (137-145) mmol/L Potassium 4.0 (3.6-5.0) mmol/L Chloride 102.1 (98-107) mmol/L Carbon Dioxide 23 (22-30) mmol/L Anion Gap 19 mmol/L BUN 19 H (7-17) mg/dL Creatinine 0.5 L (0.7-1.2) mg/dL Estimated GFR > 60 ml/min BUN/Creatinine Ratio 38.00 % Glucose 97 (65-100) mg/dL Calcium 8.5 (8.4-10.2) mg/dL NT-Pro-B Natriuret Pep (0-450) pg/mL Urine Color (Yellow) Urine Turbidity (Clear) Urine pH (5.0-7.0) Ur Specific [place] (1.003-1.030) Urine Protein (Negative) mg/dL Urine Glucose (UA) (Negative) mg/dL Urine Ketones (Negative) mg/dL Urine Blood (Negative) Urine Nitrite (Negative) Urine Bilirubin (Negative) Urine Urobilinogen (<2.0) mg/dL Ur Leukocyte Esterase (Negative) Urine WBC (Auto) (0.0-6.0) /HPF Urine RBC (Auto) (0.0-6.0) /HPF U Epithel Cells (Auto) (0-13.0) /HPF Urine Mucus /HPF - Radiology Data Radiology results: report reviewed, image reviewed CT chest angiogram: Shows no pulmonary embolism small right pleural effusion no cardiomegaly Chest X-ray: Shows no acute pulmonary disease - Medical Decision Making Chief medical diagnosis: Pulmonary embolus Differential medical diagnosis: Pneumonia, congestive heart failure, infection, anemia I had CBC, BMP, chest x-ray, CT angiogram chest, IV pain medication and I will reevaluate the patient. Patient has no pulmonary embolism patient's lab work shows anemia. Patient has a small right pleural effusion I will give patient oral azithromycin and sent patient home with a prescription for azithromycin. Discussed the remaining historic interpreter patient and her agree with plan K patient and her return precautions, emergency department additional verbal discharge instructions were given. Critical care attestation.: If time is entered above; I have spent that time in minutes in the direct care of this critically ill patient, excluding procedure time. ED Disposition Clinical Impression: Pleural effusion, right, SOB (shortness of breath), Pleuritic chest pain Anemia Qualifiers: Anemia type: unspecified type Qualified Code(s): D64.9 - Anemia, unspecified Disposition: - TO HOME OR SELFCARE Is pt being admited?: No Does the pt Need Aspirin: No Condition: Stable Instructions: Chest Pain (ED), Pneumonia (ED) Prescriptions: Azithromycin [Zithromax Z-JAVED] 250 mg PO DAILY #5 tablet Referrals: PRIMARY CARE, [Primary Care Provider] - 3-5 Days
[2016-10-18 19:35] LABS: Bilirubin,Urine NEG (Negative); Blood,Urine LG (Negative); Ketones,Urine NEG (Negative); Leukocyte Esterase,Urine TR (Negative); Mucus,Urine FEW /HPF; Nitrite,Urine NEG (Negative); Protein,Urine <15 mg/dL mg/dL (Negative)
[2016-10-18 19:54] LABS: Hematocrit 26.6 % (30.3-42.9); Hemoglobin 9.1 gm/dl (10.1-14.3); Mean Corpuscular HGB Conc 34 % (30-34); Mean Corpuscular Hemoglobin 30 pg (28-32); Mean Corpuscular Volume 88 fl (79-97); Platelet Count 195 K/mm3 (140-440); Red Blood Count 3.04 M/mm3 (3.65-5.03); White Blood Count 6.1 K/mm3 (4.5-11.0)
[2016-10-18 20:06] LABS: Anion Gap 19 mmol/L; Blood Urea Nitrogen 19 mg/dL (7-17); Calcium 8.5 mg/dL (8.4-10.2); Carbon Dioxide 23 mmol/L (22-30); Chloride 102.1 mmol/L (98-107); Glucose 97 mg/dL (65-100); Sodium 140 mmol/L (137-145)
[2016-10-18] MEDS ORDERED: SUBLIMAZE IV ONE (20:16)
--- NOTE | 2016-10-18 20:24 | XRay Report ---
FINAL REPORT PROCEDURE: Chest. TECHNIQUE: PA and lateral views. HISTORY: Shortness of breath. COMPARISON: No prior studies are available for comparison. FINDINGS: The heart and mediastinum appear normal. The lungs are clear and well expanded. There are no pleural effusions. The soft tissues and regional skeleton are unremarkable. IMPRESSION: Normal study.
[2016-10-18] MEDS ORDERED: NACL ONE (20:25)
--- NOTE | 2016-10-18 21:00 | Cat Scan Report ---
FINAL REPORT PROCEDURE: CT angiogram chest with contrast. TECHNIQUE: Computerized tomographic angiography of the chest was performed after the IV injection of iodinated nonionic contrast including image processing. The image data was postprocessed using 2-dimensional multiplanar reformatted (MPR) and 3-dimensional (MIP and/or volume rendered) techniques. HISTORY: Shortness of breath, possible pulmonary embolism. COMPARISON: No prior studies are available for comparison. FINDINGS: The trachea and central bronchi appear normal. The thoracic aorta has a normal caliber without evidence of dissection. The pulmonary arteries enhance normally. There are no definite filling defects to indicate pulmonary embolism. There is no mediastinal adenopathy. The heart size is normal. There is a small right pleural effusion. The lungs are clear and well expanded. The thoracic skeleton appears intact. IMPRESSION: Small right pleural effusion. No evidence of pulmonary emboli.
[2016-10-18] MEDS ORDERED: ZITHROMAX PO ONE (21:21)
[2016-10-18 22:10] VITALS: BP 134/82
== END 2016-10-18 22:09 | disposition home or self-care (01) ==
LOC: ED 17:57
DX: J90 Pleural effusion, not elsewhere classified (principal); D64.9 Anemia, unspecified
CPT/HCPCS: 36415; 71020; 71275; 80048; 81001; 83880; 85027; 96374; 99284; J3010; Q9967

== ENCOUNTER 2016-10-31 06:57 | Emergency (ER) | payer SELFPAY ==
[2016-10-31 08:06] LABS: Basophils % (Auto) 1.2 % (0.0-1.8); Eosinophils % (Auto) 4.2 % (0.0-4.3); Hematocrit 37.7 % (30.3-42.9); Hemoglobin 12.3 gm/dl (10.1-14.3); Mean Corpuscular HGB Conc 33 % (30-34); Mean Corpuscular Hemoglobin 28 pg (28-32); Mean Corpuscular Volume 85 fl (79-97); Platelet Count 289 K/mm3 (140-440); Red Blood Count 4.42 M/mm3 (3.65-5.03); White Blood Count 6.6 K/mm3 (4.5-11.0)
[2016-10-31 08:17] LABS: Anion Gap 15 mmol/L; Blood Urea Nitrogen 15 mg/dL (7-17); Calcium 9.1 mg/dL (8.4-10.2); Carbon Dioxide 26 mmol/L (22-30); Chloride 102.3 mmol/L (98-107); Glucose 104 mg/dL (65-100); Potassium 3.7 mmol/L (3.6-5.0); Sodium 140 mmol/L (137-145)
--- NOTE | 2016-10-31 08:55 | XRay Report ---
FINAL REPORT EXAM: XR CHEST ROUTINE 2V HISTORY: CHEST PAIN /BACK PAIN TECHNIQUE: PA and lateral chest radiographs PRIORS: 10/18/2016 FINDINGS: No mediastinal shift. Cardiac silhouette is not enlarged. No pneumothorax, effusion, or focal pulmonary opacity. No acute skeletal finding. IMPRESSION: No focal pulmonary opacity.
[2016-10-31 13:48] LABS: Bilirubin,Urine NEG (Negative); Blood,Urine LG (Negative); Ketones,Urine NEG (Negative); Leukocyte Esterase,Urine MOD (Negative); Mucus,Urine FEW /HPF; Nitrite,Urine NEG (Negative)
[2016-10-31 13:49] LABS: RBC,Urine > 182.0 /HPF (0.0-6.0); WBC,Urine > 182.0 /HPF (0.0-6.0)
--- NOTE | 2016-10-31 17:11 | Emergency Department Report ---
ED General Adult HPI - General Chief complaint: Back Pain/Injury Stated complaint: BACK PAIN Time Seen by Provider: 10/31/16 16:56 Source: family Mode of arrival: Wheelchair Limitations: Language Barrier - History of Present Illness Initial comments: Patient and her have multiple general medical concerns. They state that they haven't been able to get follow-up after due to lack of funds. The patient now complains of discomfort in her right trapezius area that is a soreness. She is concerned about a stitch area in her that she thought was draining pus. She complains of dysuria. There's been no recent fever present. Additionally the is asking for referral to a senior db2 systems programmer for the baby. -: Gradual, week(s) Location: right Quality: other Consistency: intermittent (intermittent soreness) Improves with: none Worsens with: none Associated Symptoms: denies other symptoms (except as above indicated) Treatments Prior to Arrival: none - Related Data Previous Rx's Medication Instructions Recorded Last Taken Type Ibuprofen [Motrin 800 MG tab] 800 mg PO TID PRN #30 tablet 10/13/16 Unknown Rx oxyCODONE /ACETAMINOPHEN [Percocet 1 - 2 tab PO Q4HR PRN #30 tablet 10/13/16 Unknown Rx 5/325 mg] Azithromycin [Zithromax Z-JAVED] 250 mg PO DAILY #5 tablet 10/18/16 Unknown Rx Allergies Allergy/AdvReac Type Severity Reaction Status Date / Time No Known Allergies Allergy Verified 10/31/16 07:29 ED Review of Systems ROS: Stated complaint: BACK PAIN Other details as noted in HPI Constitutional: denies: chills, fever Eyes: denies: eye pain, eye discharge, vision change ENT: denies: ear pain, throat pain Respiratory: denies: cough, shortness of breath, wheezing Cardiovascular: denies: chest pain, palpitations Endocrine: no symptoms reported Gastrointestinal: denies: abdominal pain, nausea, diarrhea Genitourinary: denies: urgency, dysuria, discharge Musculoskeletal: denies: back pain, joint swelling, arthralgia Skin: denies: rash, lesions Neurological: denies: headache, weakness, paresthesias Psychiatric: denies: anxiety, depression Hematological/Lymphatic: denies: easy bleeding, easy bruising ED Past Medical Hx - Past Medical History Previous Medical History?: No Hx Hypertension: No Hx Congestive Heart Failure: No Hx Diabetes: No Hx Deep Vein Thrombosis: No Hx Renal Disease: No Hx Sickle Cell Disease: No Hx Seizures: No Hx Asthma: No Hx COPD: No Hx HIV: No - Surgical History Additional Surgical History: 5 c-sections - Social History Smoking Status: Never Smoker Substance Use Type: Prescribed - Medications Home Medications: Home Medications Medication Instructions Recorded Confirmed Last Taken Type Ibuprofen [Motrin 800 MG tab] 800 mg PO TID PRN #30 tablet 10/13/16 Unknown Rx oxyCODONE /ACETAMINOPHEN [Percocet 1 - 2 tab PO Q4HR PRN #30 tablet 10/13/16 Unknown Rx 5/325 mg] Azithromycin [Zithromax Z-JAVED] 250 mg PO DAILY #5 tablet 10/18/16 Unknown Rx ED Physical Exam - General Limitations: Language Barrier General appearance: alert, in no apparent distress, other (nontoxic patient in no distress ) - Head Head exam: Present: atraumatic, normocephalic - Eye Eye exam: Present: normal appearance. Absent: scleral icterus - ENT ENT exam: Present: mucous membranes moist - Neck Neck exam: Present: normal inspection, other (patient's symptoms involve her right trapezius which is tender and reproduces them). Absent: tenderness (no posterior tenderness), meningismus - Respiratory Respiratory exam: Present: normal lung sounds bilaterally. Absent: respiratory distress - Cardiovascular Cardiovascular Exam: Present: regular rate, normal rhythm. Absent: systolic murmur, diastolic murmur, rubs, gallop - GI/Abdominal GI/Abdominal exam: Present: soft, normal bowel sounds, other (the surgical scar is intact. There is 1 slight stitch dehiscence there is no purulent drainage. There is no drainage). Absent: distended, tenderness, guarding, rebound, rigid - Extremities Exam Extremities exam: Present: normal inspection, normal capillary refill. Absent: full ROM, tenderness, pedal edema, joint swelling, calf tenderness - Back Exam Back exam: Present: normal inspection. Absent: CVA tenderness (R), CVA tenderness (L) - Neurological Exam Neurological exam: Present: alert, oriented X3, CN II-XII intact. Absent: motor sensory deficit - Psychiatric Psychiatric exam: Present: normal affect, anxious - Skin Skin exam: Present: warm, dry, intact, normal color. Absent: rash ED Course Vital Signs 10/31/16 10/31/16 10/31/16 07:29 13:36 13:39 Temperature 98.1 F 98.4 F Pulse Rate 84 87 Respiratory 17 18 18 Rate Blood Pressure 160/78 Blood Pressure 143/87 [Left] O2 Sat by Pulse 100 100 Oximetry - Reevaluation(s) Reevaluation #1: Patient will be given ceftriaxone. Family will be referred back to their infectious diseases physician for follow-up care [facility]. She'll be given a prescription for Macrobid for her UTI. Blood pressure has improved. I do not see an indication of a preeclamptic state. 10/31/16 17:24 ED Medical Decision Making - Lab Data Result diagrams: 10/31/16 07:40 10/31/16 07:40 Laboratory Results - last 24 hr 10/31/16 10/31/16 10/31/16 07:40 07:40 13:35 WBC 6.6 RBC 4.42 Hgb 12.3 Hct 37.7 MCV 85 MCH 28 MCHC 33 RDW 15.0 Plt Count 289 Lymph % (Auto) 27.4 Grand % (Auto) 6.1 Eos % (Auto) 4.2 Baso % (Auto) 1.2 Lymph # 1.8 Grand # 0.4 Eos # 0.3 Baso # 0.1 Seg Neutrophils % 61.1 Seg Neutrophils # 4.0 Sodium 140 Potassium 3.7 Chloride 102.3 Carbon Dioxide 26 Anion Gap 15 BUN 15 Creatinine 0.5 L Estimated GFR > 60 BUN/Creatinine Ratio 30.00 Glucose 104 H Calcium 9.1 Urine Color Red Urine Turbidity Clear Urine pH 6.0 Ur Specific [place] 1.017 Urine Protein 30 mg/dl Urine Glucose (UA) Neg Urine Ketones Neg Urine Blood Lg Urine Nitrite Neg Urine Bilirubin Neg Urine Urobilinogen 2.0 Ur Leukocyte Esterase Mod Urine WBC (Auto) > 182.0 H Urine RBC (Auto) > 182.0 U Epithel Cells (Auto) 2.0 Urine WBC Clumps 3+ Urine Mucus Few Urine HCG, Qual TNR Critical care attestation.: If time is entered above; I have spent that time in minutes in the direct care of this critically ill patient, excluding procedure time. ED Disposition Clinical Impression: Musculoskeletal pain Acute cystitis Qualifiers: Hematuria presence: with hematuria Qualified Code(s): N30.01 - Acute cystitis with hematuria Disposition: TO HOME OR SELFCARE Is pt being admited?: No Does the pt Need Aspirin: No Condition: Stable Instructions: Urinary Tract Infection in Women (ED), Musculoskeletal Pain (ED) Additional Instructions: Follow-up with your OB physician. Return any acute change or problem particularly any vomiting fever lower back pain or worsening urinary symptoms. I've also given your referral to pediatric group for the baby. Referrals: PRIMARY CARE, [Primary Care Provider] - 3-5 Days [facility] [Provider Group] - 3-5 Days [facility] [Provider Group] - 3-5 Days
[2016-10-31] MEDS ORDERED: ROCEPHIN IM ONE (17:30)
[2016-10-31] MEDS ORDERED: NORCO 5/325 PO ONE (17:30)
[2016-10-31] MEDS ORDERED: XYLOCAINE 1% MPF 5 mL INFILTRATI ONE (17:30)
[2016-10-31 18:02] VITALS: BP 151/101
== END 2016-10-31 18:03 | disposition home or self-care (01) ==
LOC: ED 06:57
DX: N30.00 Acute cystitis without hematuria (principal)
CPT/HCPCS: 36415; 71020; 80048; 81001; 81025; 85025; 87086; 96372; 99284; J0696